=== PATIENT | male | born 1965 | race Caucasian/White ===

== ENCOUNTER 2017-10-04 10:48 | Emergency (ER) | payer OTHER | END 2017-10-04 11:17 | disposition home or self-care (01) | LOC: E/R 10:48 | DX: M10.9 Gout, unspecified (principal); Z87.891 Personal history of nicotine dependence | CPT/HCPCS: 99284 ==

== ENCOUNTER 2017-10-30 07:35 | Emergency (ER) | payer OTHER ==
[2017-10-30] MEDS: KETOROLAC 30 MG INJ IM (08:14)
== END 2017-10-30 08:28 | disposition home or self-care (01) ==
LOC: FTE 07:35
DX: M10.9 Gout, unspecified (principal); F17.210 Nicotine dependence, cigarettes, uncomplicated
CPT/HCPCS: 96372; 99284-25; J1885

== ENCOUNTER 2017-12-13 13:44 | Emergency (ER) | payer OTHER ==
[2017-12-13] MEDS: IBUPROFEN 600 MG TAB PO (14:53)
[2017-12-13] MEDS ORDERED: IBUPROFEN 200 MG TAB PO (15:00)
[2017-12-13] MEDS ORDERED: IBUPROFEN 800 MG TAB PO (15:00)
== END 2017-12-13 14:59 | disposition home or self-care (01) ==
LOC: E/R 13:44
DX: M10.9 Gout, unspecified (principal); R40.2412 Glasgow coma scale score 13-15, at arrival to emergency department; Z87.891 Personal history of nicotine dependence
CPT/HCPCS: 99282

== ENCOUNTER 2018-01-29 08:16 | Emergency (ER) | payer OTHER ==
[2018-01-29] MEDS: HYDROCODONE/APAP (5/325) TAB PO (08:42)
== END 2018-01-29 09:18 | disposition home or self-care (01) ==
LOC: FTE 08:16
DX: M10.9 Gout, unspecified (principal); F17.210 Nicotine dependence, cigarettes, uncomplicated
CPT/HCPCS: 99284

== ENCOUNTER 2018-03-23 11:21 | Emergency (ER) | payer OTHER ==
[2018-03-23] MEDS: IBUPROFEN 800 MG TAB PO (12:30)
[2018-03-23] MEDS: HYDROCODONE/APAP (5/325) TAB PO (12:30)
== END 2018-03-23 13:13 | disposition home or self-care (01) ==
LOC: FTE 11:21
DX: M10.9 Gout, unspecified (principal)
CPT/HCPCS: 99283

== ENCOUNTER 2018-06-15 17:17 | Emergency (ER) | payer OTHER ==
[2018-06-15] MEDS: HYDROCODONE/APAP (5/325) TAB PO (17:58)
[2018-06-15] MEDS: KETOROLAC 30 MG INJ IM (17:58)
== END 2018-06-15 18:27 | disposition home or self-care (01) ==
LOC: FTE 18:27
DX: M25.562 Pain in left knee (principal); M10.9 Gout, unspecified; F17.210 Nicotine dependence, cigarettes, uncomplicated
CPT/HCPCS: 96372; 99284-25

== ENCOUNTER 2018-07-27 02:24 | Emergency (ER) | payer OTHER ==
[2018-07-27] MEDS: IBUPROFEN 800 MG TAB PO (03:11)
[2018-07-27] MEDS: HYDROCODONE/APAP (5/325) TAB PO (03:11)
== END 2018-07-27 03:25 | disposition home or self-care (01) ==
LOC: FTE 02:24
DX: M10.9 Gout, unspecified (principal)
CPT/HCPCS: 99283

== ENCOUNTER 2018-09-05 18:46 | Emergency (ER) | payer OTHER ==
[2018-09-05] MEDS: predniSONE 20 MG TAB PO (21:02)
[2018-09-05] MEDS: KETOROLAC 30 MG INJ IM (21:03)
== END 2018-09-05 21:13 | disposition home or self-care (01) ==
LOC: FTE 18:46
DX: M10.9 Gout, unspecified (principal); F17.210 Nicotine dependence, cigarettes, uncomplicated
CPT/HCPCS: 96372; 99284-25

== ENCOUNTER 2018-10-18 12:34 | Emergency (ER) | payer OTHER ==
[2018-10-18] MEDS: HYDROCODONE/APAP (5/325) TAB PO (13:59)
== END 2018-10-18 14:57 | disposition home or self-care (01) ==
LOC: FTE 12:34
DX: M10.9 Gout, unspecified (principal); F17.210 Nicotine dependence, cigarettes, uncomplicated
CPT/HCPCS: 99283

== ENCOUNTER 2018-12-17 06:26 | Emergency (ER) | payer OTHER | END 2018-12-17 07:30 | disposition home or self-care (01) | LOC: FTE 06:26 | DX: M10.9 Gout, unspecified (principal); F17.210 Nicotine dependence, cigarettes, uncomplicated | CPT/HCPCS: 99281 ==